=== PATIENT | female | born 2000 | race Two or more races ===

== ENCOUNTER 2020-07-19 10:38 | Emergency (ER) | payer OTHER ==
[2020-07-19 10:53] VITALS: BP 134/83; PULSE 78; TEMP 99.1; BMI 20.9
--- OUTSIDE RECORDS SUMMARY | 2020-07-19 10:56 | XMS ---
:[address] [facility] Care Team Providers Name Role Phone ED STAFF PHYSICIANDOROTHY Unavailable Unavailable [facility], MHAW9 Unavailable Unavailable ED STAFF PHYSICIAN, STAFF Unavailable Unavailable Odette Rodriguez MD Unavailable Unavailable Lesly Rodriguez MD Unavailable Unavailable Lesly Rodriguez MD Unavailable Unavailable Lesly Rodriguez MD Unavailable Unavailable Other Unavailable Unavailable TARI HOLLINGSWORTH Unavailable Unavailable ED STAFF PHYSICIAN Unavailable Unavailable Re-disclosure Warning The records that you are about to access may contain information from federally- assisted alcohol or drug abuse programs. If such information is present, then the following federally mandated warning applies: This information has been disclosed to you from records protected by federal confidentiality rules (42 CFR part 2). The federal rules prohibit you from making any further disclosure of this information unless further disclosure is expressly permitted by the written consent of the person to whom it pertains or as otherwise permitted by 42 CFR part 2. A general authorization for the release of medical or other information is NOT sufficient for this purpose. The Federal rules restrict any use of the information to criminally investigate or prosecute any alcohol or drug abuse patient.The records that you are about to access may contain highly sensitive health information, the redisclosure of which is protected by Article 27-F of the [facility] Public Health law. If you continue you may haveaccess to information: Regarding HIV / AIDS; Provided by facilities licensed or operated by the [facility] Office of Mental Health; or Provided by the [facility] Office for People With Developmental Disabilities. If such information is present, then the following [facility] mandated warning applies: This information has been disclosed to you from confidential records which are protected by state law. State law prohibits you from making any further disclosure of this information without the specific written consent of the person to whom it pertains, or as otherwise permitted by law. Any unauthorized further disclosure in violation of state law may result in a fine or mcfp sentence or both. A general authorization for the release of medical or other information is NOT sufficient authorization for further disclosure. Encounters Encounter Providers Location Date Indications Data Source(s ) Outpatient Attender: [id number] 07/15/2020 [facility] ([facility] 05:19:36 PM Health Care EDT Collaborative) [facility]. [facility] 12:[facility] [employer] [facility]) [facility]TEL) [facility] 05[facility]30[facility] 12:00:00 AM EDT [facility] [employer] [facility]) (TEL) [facility] 05/28/2020 [facility] 12:00:00 AM EDT [facility] [employer] [facility]) [facility] 05/25/2020 [facility] ( [facility] 12:00:00 AM EDT [facility] [employer] [facility]) Outpatient Attender: 05/11/2020 [facility] ([address] 12:32:12 PM EDT Care Col laborative) Patient admitted. Emergency Attender: Odette ICU-EMERG 04/08/2020 01:38:00 ABD PAIN S - New Mama MDAttender: PM EDT - 04/08/2020 [facility] Doctor Other 05:07:00 PM EDT ABD PAIN Patient discharged. Outpatient Attender: DARRICK Borja 04/01/2020 02:14:00 PM [facility] HOLLINGSWORTHAdmitter: DARRICK EDT [facility] TARI HOLLINGSWORTHReferrer: DARRICK HOLLINGSWORTH Outpatient Attender: [id number] [facility] 12/29/2019 05:41:50 AM [facility] ([facility] EDT Health Care Collaborative) Patient admitted. Emergency Attender: DOROTHY ED STAFF H 11/16/2019 02:28:00 PM [facility] PHYSICIANAttender: STAFF ED EST - 11/16/2019 Medical Center STAFF PHYSICIANAdmitter: 05:26:00 PM EST DOROTHY ED STAFF PHYSICIAN Patient discharged. [facility] 08[facility] 12:00:00 AM EDT [facility] - [facility] [place] [employer]) [facility] 07/31/[facility] eCW[facility] 12:00:00 AM EDT Par [facility] - [facility] [place] [employer]) Emergency Attender: CHRISTO Borja 07/12/2019 [facility] ED STAFF 06:46:00 PM EDT Medical C mir PHYSICIANAdmitt - 07/12/2019 er: CHRISTO ED 10:24:00 PM EDT STAFF PHYSICIAN [facility] discharged. [facility] 12:00:00 eCW2 ([facility] [place] AM [facility] [employer] [facility]) [facility] 05/24/2019 12:00:00 eCW2 ([facility] [place] AM EDT [facility] - [facility] [employer] [facility]) Medications Medication Brand Start Product Dose Route Administrative Pharmacy [facility] Indications Reaction Description Data Name Date Form Instructions Instructions Source(s) Azithromyci Azithr 06/10/ active Azithro mycin eCW2 n 500 MG omycin 2020 500mg ([facility] Oral Tablet 500mg 12:00: Alex kaufman Azithromyci 00 AM - Hudso n n 500mg EDT [facility]) Insurance Providers Payer name Policy type Policy ID Covered Covered democrat's Policy P parisa / Coverage democrat ID relationship to Padilla Inf ormation type padilla JACQUELINE [id number] SP [id number] HEALTH NON CAP [place] Medicaid [id number] 1 [id number] Medicaid Medicaid [id number] 1 [id number] Self Pay Self Pay SELF PAY 1 SELF PAY JACQUELINE CARE W [id number] Problems, Conditions, and Diagnoses Code Display Name Description Problem Type Effective Data Sour ce(s) Dates R10.9 Unspecified Abdominal pain Diagnosis 04/08/2020 S - New abdominal pain 01:38:00 PM [facility] Z03.818 Encounter for Encounter for Diagnosis 04/08/2020 S - Ne w observation for observation for 01:38:00 [facility] suspected exposure suspected exposure EDT Hospital to other to other biological agents biological agent, ruled out ruled out ABD PAIN ABD PAIN Diagnosis 04/08/2020 S - New 01:38:00 PM [facility] FOLLOW UP FOR FOLLOW UP FOR Diagnosis 04/08/2020 S - Ne w "SWOLLEN LIVER" "SWOLLEN LIVER" 01:38:00 PM [facility] R10.9 Unspecified UNSPECIFIED Diagnosis 04/01/2020 [facility] abdominal pain ABDOMINAL PAIN 02:14:00 PM Medic al Center EDT F17.210 Nicotine NICOTINE Diagnosis 11/16/2019 [facility] Tay dependence, DEPENDENCE, 02:28:[address] cigarettes, CIGARETTES, EST uncomplicated UNCOMPLICATED J45.909 Unspecified UNSPECIFIED Diagnosis 11/16/2019 [facility] asthma, ASTHMA, 02:28:00 PM Medical Cente r uncomplicated UNCOMPLICATED EST N63.20 Unspecified lump UNSPECIFIED LUMP Diagnosis 11/16/2019 [facility] in the left IN THE LEFT 02:28:[address] breast, BREAST, EST unspecified UNSPECIFIED quadrant QUADRANT N63.0 Unspecified lump UNSPECIFIED LUMP Diagnosis 11/16/2019 [facility] in unspecified IN UNSPECIFIED 02:28:00 PM Medic al Center breast BREAST EST J06.9 Acute upper ACUTE UPPER Diagnosis 07/12/2019 [facility] respiratory RESPIRATORY 06:46:[address] infection, INFECTION, EDT unspecified UNSPECIFIED R68.89 Other general OTHER GENERAL Diagnosis 07/12/2019 [facility] symptoms and signs SYMPTOMS AND SIGNS 06:46:00 PM Medical Center EDT Surgeries/Procedures Procedure Description Date Indications Data Source(s) US Abdomen Complete US 04/08/2020 [facility] Abdomen Complete 04:31:00 PM EDT - System 04/08/2020 04:31:00 PM EDT CHLAMYDIA, CJ 07/31/2019 eCW2 ([facility] 12:00:00 AM EDT [facility]) GONORRHEA, CJ 07/31/2019 eCW2 ([facility] 12:00:00 AM EDT [facility] [employer] [facility]) SPECIMEN HANDLING 07/31/2019 eCW2 ([facility] 12:00:00 AM EDT [facility]) HIV Rapid Test [facility] 07/31/2019 eCW2 ([facility] 12:00:00 AM EDT [facility] [employer] [facility]) HIV Rapid Test [facility] 05/24/2019 eCW2 (P [facility] 12:00:00 AM EDT [facility] - [facility] [employer] [facility]) GONORRHEA, CJ 05/24/2019 eCW2 ([facility] 12:00:00 AM EDT [facility] [employer] [facility]) SPECIMEN HANDLING 05/24/2019 eCW2 ([facility] 12:00:00 AM EDT [facility] [employer] [facility]) Results ID Date Data Source HIV Rapid Test - [facility] 05/25/2020 02:27:41 AM EDT eCW2 ([facility] [employer] ) Name Value Range Interpretation Description Data Sup porting Code Source(s) Document(s ) HIV 1 p18 Ab non Result eCW2 ([facility] [Presence] in reactive Parenthood - Saliva (oral Song fluid) by [employer]) (IB) ID Date Data Source [id number] 04/08/2020 06:08:31 PM EDT [facility] System Name Value Range Interpretation Description Data Sup porting Code Source(s) Document(s ) 45956-0 NEGATIVE Testing Normal (applies COVID-19.. [place] was performed to non-numeric Health Syst em using Melendez ID results) NOW COVID-19, an isothermal nucleic acid amplification technology for the qualitative detection of nucleic acid from the SARS-CoV-2 viral RNA in respiratory specimens. The ID NOW COVID-19 test has been approved by the Food and Drug Administration (FDA) under an Emergency Use Authorization for use by authorized laboratories. Reference Range: NEGATIVE . ID Date Data Source [id number] 04/08/2020 06:08:31 PM EDT [facility] Name Value Range Interpretation Description Data Source(s ) Supporting Code Document(s ) Lipase 20 U/L Normal (applies to Lipase, Serum [place] [facility] [Enzymatic non-numeric Health System activity/vo results) lume] in Serum or Plasma ID Date Data Source [id number] 04/08/2020 06:08:31 PM EDT [facility] Name Value Range Interpretation Description Data Sup porting Code Source(s) Document(s ) Amylase 45 {IU/L} Normal (applies to Amylase, Serum [place] [Enzymatic non-numeric Health System activity/vo results) lume] in Serum or Plasma ID Date Data Source [id number] 04/08/2020 06:08:31 PM EDT [facility] Name Value Range Interpretation Description Data Sup porting Code Source(s) Document(s ) Sodium 135 Normal (applies Sodium, Serum [facility] [Moles/volume] in mmol/L to non-numeric Health Serum or Plasma results) System Potassium 4.1 Normal (applies Potassium, [facility] [Mass/volume] in mmol/L to non-numeric Serum Health Serum or Plasma results) System Chloride 106 Normal (applies Chloride, [facility] [Moles/volume] in mmol/L to non-numeric Serum Health Serum or Plasma results) System Carbon dioxide, 24.5 Normal (applies CO2, Serum [place] total mmol/L to non-numeric Health [Moles/volume] in results) System Serum or Plasma Glucose 76 Normal (applies Glucose, [facility] [Mass/volume] in mg/dL to non-numeric Serum Health Serum or Plasma results) System TotalProtein 6.7 Normal (applies Total Protein [place] mg/dl to non-numeric Health results) System Alkaline 66 Normal (applies Alkaline [facility] phosphatase {IU/L} to non-numeric Phosphatase, Health isoenzymes results) Serum System [Enzymatic activity/volume] in Serum or Plasma by Heat stability Urea nitrogen 9 mg/dl Normal (applies Blood Urea [place] [Mass/volume] in to non-numeric Nitrogen, Health Serum or Plasma results) Serum System Creatinine 0.62 Normal (applies Creatinine, [facility] [Mass/volume] in mg/dl to non-numeric Serum Health Serum or Plasma results) System Bilirubin.total 0.4 Normal (applies Bilirubin, [place] [Mass/volume] in mg/dl to non-numeric Serum Total Health Serum or Plasma results) System DirectBilirubin 0.1 Normal (applies Direct [place] mg/dl to non-numeric Bilirubin Health results) System Aspartate 16 Normal (applies Aspartate [facility] aminotransferase {IU/L} to non-numeric Transaminase, Heal th [Enzymatic results) Serum System activity/volume] in Serum or Plasma by With P-5'-P Albumin 4.3 Normal (applies Albumin, [facility] [Mass/volume] in {gm/dl} to non-numeric Serum Health Serum or Plasma results) System Alanine 14 Normal (applies Alanine [facility] aminotransferase {IU/L} to non-numeric Aminotransfer Heal th [Enzymatic results) ase, Serum System activity/volume] in Serum or Plasma I.Phosphorus 2.8 Normal (applies I. Phosphorus [place] mg/dl to non-numeric Health results) System Calcium 9.1 Normal (applies Calcium, [facility] [Mass/volume] in mg/dl to non-numeric Total Serum Health Serum or Plasma results) System Urate 2.5 Normal (applies Uric Acid, [facility] [Mass/volume] in mg/dl to non-numeric Serum Health Serum or Plasma results) System A/GRatio 1.79 Normal (applies A/G Ratio [facility] to non-numeric Health results) System Anion gap in Serum 4.50 Normal (applies Anion Gap Kushal fartun or Plasma mmol/L to non-numeric Health results) System Glomerular > 90 Normal (applies GFR [facility] filtration to non-numeric Health rate/1.73 sq results) System M.predicted [Volume Rate/Area] in Serum or Plasma by Creatinine-based formula (CKD-EPI) eGFR will provide clinicians with a more accurate indicator of renal function then the serum creatinine. The eGFR is automa tically calculated from an empiric formula (endorsed by the National Kidney Foundat ion) which incorporates age, sex, and race.Clinicians may notice surprisingly low GFR's with serum creatinine valueswithin normal range- particularly in elderly wo men (with low muscle mass).In the hospital setting, the eGFR should add an element of safety in drug dosing, in assessing the risk of IV contrast administration, and in assessing vascular risk.The NKF staging system is as follows:Normal: eGFR >90 with no kidney markersStage 1: eGFR >90 with kidney markers*Stage 2: eGFR 60- 89Stage 3: eGFR 30-59Stage 4: eGFR 15-29Stage 5: eGFR <15 (usually requir ing dialysis)*Markers include: Proteinuria, Hematuria, abnormal imaging-studies, or other blood or urine test abnormalities ID Date Data Source [id number] 04/08/2020 06:08:31 PM EDT [facility] Name Value Range Interpretation Description Data Sup porting Code Source(s) Document(s ) Leukocytes 10.5 Normal (applies WBC Count [facility] [#/volume] in {10^3_uL to non-numeric Health Unspecified } results) System specimen by Automated count Erythrocytes 4.11 Below low normal RBC Count [facility] [#/volume] in {10^6_uL Health Blood by } System Automated count Hematocrit 37.9 % Normal (applies Hematocrit [facility] [Volume to non-numeric Health Fraction] of results) System Blood Erythrocyte mean 92.2 fl Normal (applies MCV [facility] [facility] corpuscular to non-numeric Health volume [Entitic results) System volume] by Automated count Hemoglobin 12.7 Normal (applies Hemoglobin [facility] [Mass/volume] in {gm/dL} to non-numeric Health Blood results) System Erythrocyte mean 33.5 Normal (applies MCHC [place] corpuscular {gm/dL} to non-numeric Health hemoglobin results) System concentration [Mass/volume] by Automated count Erythrocyte mean 30.9 pg Normal (applies MCH [place] corpuscular to non-numeric Health hemoglobin results) System [Entitic mass] by Automated count Platelets 195 Normal (applies Platelet [facility] [#/volume] in {10^3_uL to non-numeric Count Health Plasma by } results) System Automated count Erythrocyte 12.7 % Normal (applies RDW-CV [facility] distribution to non-numeric Health width [Entitic results) System volume] by Automated count Nucleated 0.0 Normal (applies NRBC % [facility] erythrocytes {/100_WB to non-numeric Health [#/volume] in C} results) System Body fluid Platelet mean 9.7 fl Normal (applies MPV [facility] volume [Entitic to non-numeric Health volume] in Blood results) System by Automated count NRBC# 0.00 Normal (applies NRBC # [facility] {10^3_uL to non-numeric Health } results) System ID Date Data Source [id number] 04/08/2020 06:08:31 PM EDT [facility] Name Value Range Interpretation Description Data Sup porting Code Source(s) Document(s ) Appearance of HAZY Normal (applies Urine [facility] Urine to non-numeric Appearance Health results) System Color Yellow Normal (applies Color [facility] to non-numeric Health results) System pH.. 5.0 Normal (applies pH.. [facility] {pH_unit to non-numeric Health s} results) System Specific gravity 1.021 Normal (applies Urine Specific [place] [facility] of Urine to non-numeric [place] [facility] results) System Glucose,UA NEG Normal (applies Glucose, UA [facility] to non-numeric Health results) System Protein NEG Normal (applies Protein [facility] [Mass/volume] in to non-numeric Health Serum or Plasma results) System BilirubinUrine NEG Normal (applies Bilirubin [place] [facility] to non-numeric Urine Health results) System Ketones NEG Normal (applies Ketones UA [facility] [Mass/volume] in to non-numeric Health Urine results) System Urobilinogen < 2.0 Normal (applies Urobilinogen [facility] [facility] [Mass/volume] in to non-numeric UA Health Urine results) System Reference Range: Negative or <=2.0 Nitrate+Nitrite Negative Normal (applies Nitrite [facility] [facility] [Mass/volume] in to non-numeric Health S ystem Unspecified specimen results) Leukocyte esterase Trace Abnormal (applies Leukocyte Est erase [facility] [Units/volume] in to non-numeric Concentration Hea lth System Urine results) RedBloodCells 1 {/HPF} Normal (applies Red Blood Cells [facility] [facility] to non-numeric Health System results) Epithelial cells 12 {/HPF} Normal (applies Epithelial Cells [facility] [Presence] in to non-numeric Health Syst em Unspecified specimen results) by Wet preparation Leukocytes [#/volume] 6 {/HPF} Normal (applies White Blood Cells [facility] in Unspecified to non-numeric Health Sys tem specimen by Automated results) count UrineBlood NEG Normal (applies Urine Blood [facility] to non-numeric Health System results) Bacteria [Presence] FEW Normal (applies Bacteria Cu[place] [facility] in Unspecified to non-numeric Health Sys tem specimen results) Mucus OCC Normal (applies Mucus [facility] to non-numeric Health System results) ID Date Data Source [id number] 04/08/2020 04:31:00 PM EDT [facility] STUDY: ABDOMINAL ULTRASOUNDREASON FOR E XAM: Female, 20 years old. Diffuse abdominal painx 1 month;TECHNIQUE: Tra nsabdominal ultrasound was performed withreal-time and static kendall scaleimagi ng.TECHNICAL QUALITY: Adequate.COMPARISON:None. FINDINGS:Abdominal ultrasound was performed. The liveris ho mogeneouswith the right lobe measuring 14.2 cm. The gallbladder is fluidfilled. Ther e is no gallstones.CBD measures 3.2 mm. Evaluationof the pancreas is unremarkabl e. The abdominal aorta and IVC arenormal incaliber. The right kidney measures 10. 6 cm. The leftkidney measures 10.8 cm. There is no hydronephrosis orrenalcalculi. The spleen is homogeneous measuring 9.3 cm.IMPRESSION: Unremarkable abdominalult rasound.Electronically Signed:Kolton Granado, at 16:49 EDTTel ,Service support , [phone] Name Value Range Interpretation Code Description Data Fabby rce(s) Supporting Document(s ) ID Date Data Source [id number] 04/08/2020 02:38:00 PM EDT [facility] Name Value Range Interpretation Code Description Data [facility] rce(s) Supporting Document(s ) COVID-19.. [facility] This lab was [facility] and reported by [facility]. ID Date Data Source [id number] 11/16/2019 03:26:00 PM EST [facility] 0 Name Value Range Interpretation Description Data Sup porting Code Source(s) Document(s ) UNK CLEAR <content Saint styleCode="Jailyn Buckleys d">Urine Medical Clarity Center </content>ERICK R <content styleCode="Giulia lics"> (CLEAR )</content> Color of Urine YELLOW <content Saint styleCode="Jailyn Tay d">Color, Medical Urine Center </content>YELL OW <content styleCode="Giulia lics"> (YELLOW )</content> Glucose NEGATIVE <content Saint [Mass/volume] styleCode="Jailyn Buckleys in Urine by d">Urine Medical Test strip Glucose Center </content>NEGA TIVE MG/DL<content styleCode="Giulia lics"> (NEGATIVE MG/DL)</conten t> Hemoglobin NEGATIVE <content Saint [Presence] in styleCode="Jailyn Buckleys Urine by Test d">Urine Blood Medical strip </content>TRAC Center E <content styleCode="Giulia lics"> (NEGATIVE )</content> pH of Urine by 4.5-8.0 <content Saint Test strip styleCode="Jailyn Tay d">Urine pH Medical </content>6.0 Center <content styleCode="Giulia lics"> (4.5-8.0 )</content> UNK NEGATIVE <content Saint styleCode="Jailyn Tay d">Urine Medical Bilirubin Center </content>SMAL L <content styleCode="Giulia lics"> (NEGATIVE )</content> Specific 1.015-1.02 Above high <content Saint gravity of 5 normal styleCode="Jailyn Buckleys Urine by Test d">Urine Medical strip Specific Center [place] </content>>= 1.030 H<content styleCode="Giulia lics"> (1.015-1.025 )</content> Ketones NEGATIVE <content Saint [Mass/volume] styleCode="Jailyn Tay in Urine by d">Urine Medical Test strip Ketone Center </content>NEGA TIVE MG/DL<content styleCode="Giulia lics"> (NEGATIVE MG/DL)</conten t> Urobilinogen 0.2-1.0 <content Saint [Units/volume] styleCode="Jailyn Cross in Urine by d">Urine Medical Test strip Urobilinogen Center </content>0.2 MG/DL<content styleCode="Giulia lics"> (0.2-1.0 MG/DL)</conten t> Leukocyte NEGATIVE <content Saint esterase styleCode="Jailyn Buckleys [Presence] in d">Urine Medical Urine by Test Leukocyte Center strip </content>NEGA TIVE <content styleCode="Giulia lics"> (NEGATIVE )</content> Nitrite NEGATIVE <content Saint [Presence] in styleCode="Jailyn Cross Urine by Test d">Urine Medical strip Nitrite Center </content>NEGA TIVE <content styleCode="Giulia lics"> (NEGATIVE )</content> Protein NEGATIVE <content Saint [Mass/volume] styleCode="Jailyn Buckleys in Urine by d">Urine Medical Test strip Protein Center </content>NEGA TIVE MG/DL<content styleCode="Giulia lics"> (NEGATIVE MG/DL)</conten t> UNK 0-3 <content Saint styleCode="Jailyn Tay d">Urine White Medical Blood Cell Center </content>0-3 HPF<content styleCode="Giulia lics"> (0-3 HPF)</content> UNK 0-3 <content Saint styleCode="Jailyn Tay d">Urine Red Medical Blood Cell Center </content>0-3 HPF<content styleCode="Giulia lics"> (0-3 HPF)</content> Procedure Social History Code Duration Value Status Description Data Source(s ) Smoking 11/16/2019 03:23:00 Daily Smoker completed Daily Smoker S [facility] EST Center Smoking 11/16/2019 03:02:00 Daily Smoker completed Daily Smoker S [facility] EST Center Smoking 11/16/2019 02:28:00 Daily Smoker completed Daily Smoker S [facility] EST Center Smoking 07/12/2019 07:51:00 Daily Smoker completed Daily Smoker S [facility] EDT Center Smoking 07/12/2019 07:32:00 Daily Smoker completed Daily Smoker S [facility] EDT Center Vital Signs ID Date Data Source UNK Name Value Range Interpretation Code Description Data Source(s) Diastolic blood 77 mm[Hg] 77 mm[Hg] eCW2 (Cyn nned pressure [facility] [employer]) Systolic blood 114 mm[Hg] 114 mm[Hg] eCW2 (Plan [facility] pressure [facility] [employer]) Body mass index 21.30 kg/m2 21.30 kg/m2 eCW2 (P lanned (BMI) [Ratio] [facility] [employer]) Body weight 132 [lb_av] 132 [lb_av] eCW2 (Plann ed [facility] [employer]) Body height 66 [in_i] 66 [in_i] eCW2 ([facility] [employer]) Diastolic blood 69 mm[Hg] 69 mm[Hg] eCW2 (Cyn nned pressure [facility] [employer]) Systolic blood 114 mm[Hg] 114 mm[Hg] eCW2 (Plan [facility] pressure [facility] [employer]) Body mass index 22.59 kg/m2 22.59 kg/m2 eCW2 (P lanned (BMI) [Ratio] [facility] [employer]) Body weight 140 [lb_av] 140 [lb_av] eCW2 (Plann ed [facility] [employer]) Body height 66 [in_i] 66 [in_i] eCW2 ([facility] [employer]) Body temperature 36.6 Lena 0 - 99.9 Normal (applies to 36.6 Lena [facility] results) Body temperature 98 [degF] 0 - 200 Normal (applies to 98 [degF] [facility]) Diastolic blood 79 mm[Hg] 0 - 999 Normal (applies to 79 mm[Hg] [facility]) Systolic blood 129 mm[Hg] 0 - 999 Normal (applies to 129 mm[Hg] [facility]) Oxygen saturation 99 % 0 - 999 Normal (applies to 99 % [facility] by Pulse oximetry results) Respiratory rate 17 0 - 999 Normal (applies to 17 [facility]) Heart rate 70 0 - 999 Normal (applies to 70 [facility]) Body surface area 1.7 m2 1.7 m2 [facility] ore Derived from Health Syste m formula Body mass index 23.4 kg/m2 23.4 [facility]2 [facility] [Ratio] [facility] em Body weight 65.77 kg 65.77 kg [facility] Body height 167.64 cm 167.64 cm [facility] Body weight 63.010395 63.374857 kg [facility] Measured kg [facility] Body temperature 37.581101 37.109283 [facility] Respiratory rate 18 /min 18 /min [facility] Oxygen saturation 100 % 100 % [facility] Arterial blood [facility] by Pulse oximetry Heart rate 79 /min 79 /min [facility] Body height 167.956678 167.802340 cm [facility] cm [facility] Diastolic blood 70 mm[Hg] 70 mm[Hg] [facility] pressure [facility] Center Systolic blood 147 mm[Hg] 147 mm[Hg] [facility] pressure [facility] Center Body mass index 22.5 kg/m2 22.5 kg/m2 [facility] ephs (BMI) [Ratio] [facility] [address] [facility] Diastolic blood 61 mm[Hg] 61 mm[Hg] eCW2 ([facility]yn [facility] [employer]) Systolic blood 110 mm[Hg] 110 mm[Hg] eCW2 ([facility] [employer]) Body mass index 22.90 kg/m2 22.90 kg/m2 eCW2 (P lanned (BMI) [Ratio] [facility] [employer]) Body weight 141.9 141.9 [lb_av] eCW2 ([facility] Measured [lb_av] [facility] [employer]) Body height 66 [in_us] 66 [in_us] eCW2 ([facility] [employer]) Body temperature 37.445160 37.960509 [facility] Respiratory rate 18 /min 18 /min [facility] Oxygen saturation 99 % 99 % [facility] Arterial [facility] by Pulse oximetry Heart rate 98 /min 98 /min [facility] Diastolic blood 61 mm[Hg] 61 mm[Hg] [facility] pressure [facility] Systolic blood 130 mm[Hg] 130 mm[Hg] [facility] Diastolic blood 62 mm[Hg] 62 mm[Hg] eCW2 (Cyn [facility]ned [facility] [employer]) Systolic blood 95 mm[Hg] 95 mm[Hg] eCW2 ([facility] [employer]) Body mass index 22.51 kg/m2 22.51 kg/m2 eCW2 (P lanned (BMI) [Ratio] [facility] [employer]) Body weight 139.5 139.5 [lb_av] eCW2 ([facility] Measured [lb_av] [facility] [employer]) Body height 66 [in_us] 66 [in_us] eCW2 ([facility] [employer]) Diastolic blood 62 mm[Hg] 62 mm[Hg] eCW2 (Cyn [facility] [employer]) Systolic blood 95 mm[Hg] 95 mm[Hg] eCW2 ([facility] [employer]) Body mass index 22.51 kg/m2 22.51 kg/m2 eCW2 (P lanned (BMI) [Ratio] [facility] [employer]) Body weight 139.5 139.5 [lb_av] eCW2 ([facility] Measured [lb_av] [facility] [employer]) Body height 66 [in_us] 66 [in_us] eCW2 ([facility] [employer]) Patient Treatment Plan of Care Planned Activity Planned Date Details Description Data Source (s) Azithromycin 500 MG Oral 06/10/2020 12:00:00 eCW2 ([facility] Tablet AM [facility])
[2020-07-19] MEDS ORDERED: KETOROLAC TROMETHAMINE 60 MG/2 ML VIAL IM ONE (11:17)
[2020-07-19] MEDS ORDERED: CYCLOBENZAPRINE HCL 10 MG TABLET (FP) PO ONE (11:17)
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
[2020-07-19] MEDS ORDERED: KETOROLAC TROMETHAMINE 60 MG/2 ML VIAL ONE (12:06)
[2020-07-19] MEDS ORDERED: CYCLOBENZAPRINE HCL 10 MG TABLET (FP) ONE (12:06)
[2020-07-19] MEDS ORDERED: IBUPROFEN 600 MG TABLET (FP) PO ONE ×2 (12:12→12:13)
== END 2020-07-19 12:41 | disposition home or self-care (01) ==
LOC: JERFT 10:38 → JER 10:38 → JERFT 12:41
PROC: 3E0233Z Introduction of Anti-inflammatory into Muscle, Percutaneous Approach (ICD-10-PCS; principal; 2020-07-19)
DX: M25.512 Pain in left shoulder (principal)
CPT/HCPCS: 73030-TC-LT-FY; 84703; 99284-25

== ENCOUNTER 2021-02-08 15:20 | Emergency (ER) | payer OTHER ==
[2021-02-08 15:33] VITALS: BP 133/81; PULSE 83; TEMP 97.3; BMI 23.3
[2021-02-08] MEDS ORDERED: SODIUM CHLORIDE 1,000 ML IV STA (15:56)
[2021-02-08] MEDS ORDERED: ACETAMINOPHEN 1000 MG/100 ML VIAL (NON FORMULARY) IVPB ONE (15:56)
[2021-02-08] MEDS ORDERED: ACETAMINOPHEN INJECTION 100 ML IVPB ONE (16:15)
[2021-02-08 16:45] LABS: BASO % 0.4 % (0-2.0); EOS % 0.5 % (0-4.5); HEMATOCRIT 36.8 % (32.4-45.2); HEMOGLOBIN 12.7 GM/dL (10.7-15.3); LYMPH % 9.1 % (8-40); MCH 31.8 pg (25.7-33.7); MCHC 34.5 g/dl (32.0-36.0); MEAN CELL VOLUME 92.2 fl (80-96); MEAN PLT VOLUME 7.9 fl (7.5-11.1); MONO % 6.4 % (3.8-10.2); NEUT % 83.6 % (42.8-82.8); PLATELET COUNT 202 K/MM3 (134-434); RBC 3.99 M/mm3 (3.60-5.2); RDW 12.9 % (11.6-15.6); WHITE BLOOD COUNT 14.1 K/mm3 (4.0-10.0)
[2021-02-08 16:56] LABS: INR 1.09 (0.83-1.09); PROTHROMBIN TIME (PATIENT) 13.1 SEC (9.7-13.0)
[2021-02-08 17:01] LABS: CALCIUM 8.5 mg/dL (8.5-10.1)
[2021-02-08 17:02] LABS: ALBUMIN 3.8 g/dl (3.4-5.0)
[2021-02-08 17:05] LABS: CREATININE 0.8 mg/dL (0.55-1.3)
[2021-02-08 17:06] LABS: BILIRUBIN,TOTAL 0.4 mg/dL (0.2-1); TOT PROT 7.4 g/dl (6.4-8.2)
[2021-02-08] MEDS ORDERED: DEXAMETHASONE LIQUID 0.5 MG/5 ML PO ONE (18:39)
[2021-02-08] MEDS ORDERED: DEXAMETHASONE SOD PHOSPHATE 10 MG/1 ML VIAL ONE (18:45)
== END 2021-02-08 18:55 | disposition home or self-care (01) ==
LOC: JER 15:20
PROC: 3E0333Z Introduction of Anti-inflammatory into Peripheral Vein, Percutaneous Approach (ICD-10-PCS; principal; 2021-02-08)
PROC: 3E0337Z Introduction of Electrolytic and Water Balance Substance into Peripheral Vein, Percutaneous Approach (ICD-10-PCS; 2021-02-08)
DX: R59.9 Enlarged lymph nodes, unspecified (principal)
CPT/HCPCS: 36415; 70491-TC; 80053; 84703; 85025; 85610; 87880; 99285-25; C9803; J0131; Q9967; U0003; U0005

== ENCOUNTER 2022-06-30 16:03 | Inpatient (IN) | payer OTHER ==
[2022-06-30] MEDS ORDERED: CEFAZOLIN SODIUM 2 GM VIAL ONE (17:56)
[2022-06-30] MEDS ORDERED: CEFAZOLIN SODIUM 2 GM in DEXTROSE 5%-WATER 100 ML IVPB ONE (18:00)
[2022-06-30] MEDS ORDERED: DEXTROSE 5%-LACTATED RINGERS 1,000 ML IV SCH ×2 (18:00→18:10)
[2022-06-30 18:49] LABS: BASO % 0.1 % (0-2.0); EOS % 0.4 % (0-4.5); HEMATOCRIT 25.5 % (32.4-45.2); HEMOGLOBIN 9.1 GM/dL (10.7-15.3); LYMPH % 7.2 % (8-40); MCHC 35.6 g/dl (32.0-36.0); MEAN CELL VOLUME 92.6 fl (80-96); MEAN PLT VOLUME 7.1 fl (7.5-11.1); MONO % 9.1 % (3.8-10.2); NEUT % 83.2 % (42.8-82.8); PLATELET COUNT 180 10^3/uL (134-434); RBC 2.75 M/mm3 (3.60-5.2); WHITE BLOOD COUNT 13.8 K/mm3 (4.0-10.0)
[2022-06-30 18:52] LABS: EPI CELLS >36 /uL (0-25.1); HYALINE CASTS 1 /uL (0-3.1); PH,URINE 6.5 (5.0-8.0); URINE APPEARANCE CLEAR; URINE BACTERIA 314 /uL (0-1359); URINE BILIRUBIN NEGATIVE (NEGATIVE); URINE COLOR YELLOW; URINE GLUCOSE (UA) NEGATIVE (NEGATIVE); URINE KETONE TRACE (NEGATIVE); URINE LEUK ESTERASE 1+ (NEGATIVE); URINE NITRITE NEGATIVE (NEGATIVE); URINE PROTEIN NEGATIVE (NEGATIVE); URINE RBC 45 /uL (0-23.9); URINE WBC 65 /uL (0-25.8)
[2022-06-30 19:06] LABS: METHADONE, UR NEGATIVE (NEGATIVE)
[2022-06-30 19:07] LABS: COCAINE, UR NEGATIVE (NEGATIVE); PHENCYCLIDINE,URINE NEGATIVE (NEGATIVE)
[2022-06-30 19:22] LABS: OPIATES, URI NEGATIVE (NEGATIVE); URINE AMPHETAMINES NEGATIVE (NEGATIVE); URINE BARBITURATES NEGATIVE (NEGATIVE); URINE BENZODIAZEPINES NEGATIVE (NEGATIVE)
[2022-06-30 20:19] VITALS: BMI 26.2
[2022-06-30 20:35] LABS: BASO % 0.3 % (0-2.0); EOS % 0.4 % (0-4.5); HEMATOCRIT 25.5 % (32.4-45.2); HEMOGLOBIN 9.1 GM/dL (10.7-15.3); LYMPH % 8.3 % (8-40); MCH 33.1 pg (25.7-33.7); MCHC 35.6 g/dl (32.0-36.0); MEAN CELL VOLUME 92.8 fl (80-96); MEAN PLT VOLUME 7.3 fl (7.5-11.1); MONO % 9.7 % (3.8-10.2); NEUT % 81.3 % (42.8-82.8); PLATELET COUNT 188 10^3/uL (134-434); RBC 2.75 M/mm3 (3.60-5.2); WHITE BLOOD COUNT 13.9 K/mm3 (4.0-10.0)
[2022-06-30 20:44] LABS: INR 1.04 (0.83-1.09)
[2022-06-30 20:46] LABS: ACTIVATED PTT 26.5 SECONDS (25.2-36.5)
[2022-06-30 20:57] LABS: CALCIUM 8.5 mg/dL (8.5-10.1)
[2022-06-30 20:58] LABS: ALBUMIN 2.8 g/dl (3.4-5.0); BLOOD UREA NITROGEN 4.9 mg/dL (7-18)
[2022-06-30 21:01] LABS: CREATININE 0.4 mg/dL (0.55-1.3)
[2022-06-30 21:03] LABS: BILIRUBIN,TOTAL 0.2 mg/dL (0.2-1); TOT PROT 6.2 g/dl (6.4-8.2)
[2022-06-30] MEDS ORDERED: POTASSIUM CHLORIDE 20 MEQ PREMIX IVPB 100 ML IVPB ONE (21:26)
[2022-06-30 21:52] LABS: HIV INTERPRETATION NEGATIVE (NEGATIVE)
[2022-06-30] MEDS: KCL 10 MEQ IVPB 10 MEQ/100 ML INFUS.BAG IVPB SCH ×2 (21:57→23:51)
[2022-06-30] MEDS: CEFAZOLIN 1 GM in DEXTROSE 5%-WATER - 50 ML IVPB SCH (23:50)
[2022-07-01] MEDS: CEFAZOLIN 1 GM in DEXTROSE 5%-WATER - 50 ML IVPB SCH ×2 (06:01→16:34)
[2022-07-01] MEDS: FERROUS SO4 325 MG TABLET (FP) PO SCH ×2 (09:33→16:33)
[2022-07-01] MEDS: PRENATAL VITAMINS W/ FOLIC ACID TABLET (FP) PO SCH (09:37)
[2022-07-01] MEDS: KCL 10 MEQ IVPB 10 MEQ/100 ML INFUS.BAG IVPB SCH ×2 (11:42→14:11)
[2022-07-01] MEDS ORDERED: CEFAZOLIN 1 GM in DEXTROSE 5%-WATER - 50 ML IVPB SCH (17:30)
[2022-07-01] MEDS ORDERED: ONDANSETRON 4 MG/2 ML VIAL IVPUSH PRN (18:31)
[2022-07-01 18:44] VITALS: RESP 18
[2022-07-01] MEDS: ACETAMINOPHEN 500 MG TABLET (FP) PO PRN (21:43)
[2022-07-01] MEDS ORDERED: CEFAZOLIN 1 GM in DEXTROSE 5%-WATER - 50 ML IVPB ONE (22:30)
[2022-07-02 08:48] LABS: BASO % 0.2 % (0-2.0); EOS % 0.9 % (0-4.5); HEMOGLOBIN 9.9 GM/dL (10.7-15.3); LYMPH % 13.2 % (8-40); MCH 32.8 pg (25.7-33.7); MCHC 35.2 g/dl (32.0-36.0); MEAN CELL VOLUME 93.3 fl (80-96); MEAN PLT VOLUME 6.8 fl (7.5-11.1); MONO % 10.3 % (3.8-10.2); NEUT % 75.4 % (42.8-82.8); PLATELET COUNT 213 10^3/uL (134-434); WHITE BLOOD COUNT 9.1 K/mm3 (4.0-10.0)
[2022-07-02] MEDS: FERROUS SO4 325 MG TABLET (FP) PO SCH (08:48)
[2022-07-02] MEDS: ACETAMINOPHEN 500 MG TABLET (FP) PO PRN (08:49)
[2022-07-02 09:07] LABS: BLOOD UREA NITROGEN 3.7 mg/dL (7-18)
[2022-07-02 09:10] LABS: CREATININE 0.4 mg/dL (0.55-1.3)
[2022-07-02] MEDS: PRENATAL VITAMINS W/ FOLIC ACID TABLET (FP) PO SCH (11:28)
[2022-07-02 11:37] VITALS: BP 124/68; PULSE 80; TEMP 98.2
== END 2022-07-02 11:54 | disposition home or self-care (01) | DRG 566 ==
LOC: JDEL 16:03 → JLDR 18:55 → J3W 20:58
PROVIDERS: ADMIT Obstetrics & Gynecology; ATTEND Obstetrics & Gynecology
DX: O23.02 Infections of kidney in pregnancy, second trimester (principal); N10 Acute pyelonephritis; O99.012 Anemia complicating pregnancy, second trimester; D50.9 Iron deficiency anemia, unspecified; E87.6 Hypokalemia; N20.0 Calculus of kidney; Z3A.22 22 weeks gestation of pregnancy
CPT/HCPCS: 36415; 59025; 76775-TC; 80048; 80053; 80307; 81003; 85025; 85610; 85730; 86780; 86850; 86900; 86901; 87081; 87086; 87186; 87389; C9803-CS; U0003; U0005

== ENCOUNTER 2022-10-13 08:10 | Inpatient (IN) | payer OTHER ==
[2022-10-13] MEDS: ELECTROLYTE-148 SOLN 1,000 ML IV SCH (09:00)
[2022-10-13 09:09] VITALS: BMI 30.5
[2022-10-13] MEDS ORDERED: DINOPROSTONE 10 MG VAGINAL SUPPOSITORY VG ONE (09:30)
[2022-10-13] MEDS ORDERED: PROMETHAZINE HCL 25 MG/1 ML VIAL IVPUSH ONE (09:43)
[2022-10-13] MEDS ORDERED: BUTORPHANOL TARTRATE 1 MG/ML VIAL IVPUSH PRN (09:43)
[2022-10-13 11:07] LABS: BASO % 0.2 % (0-2.0); EOS % 0.6 % (0-4.5); HEMATOCRIT 34.1 % (32.4-45.2); HEMOGLOBIN 11.5 GM/dL (10.7-15.3); LYMPH % 14.7 % (8-40); MCH 30.6 pg (25.7-33.7); MCHC 33.7 g/dl (32.0-36.0); MEAN CELL VOLUME 90.7 fl (80-96); MEAN PLT VOLUME 8.2 fl (7.5-11.1); MONO % 6.3 % (3.8-10.2); NEUT % 78.2 % (42.8-82.8); PLATELET COUNT 308 10^3/uL (134-434); RBC 3.76 M/mm3 (3.60-5.2); RDW 12.6 % (11.6-15.6); WHITE BLOOD COUNT 12.5 K/mm3 (4.0-10.0)
[2022-10-13 11:15] LABS: INR 0.89 (0.83-1.09); PROTHROMBIN TIME (PATIENT) 10.2 SEC (9.7-13.0)
[2022-10-13 11:38] LABS: CALCIUM 9.1 mg/dL (8.5-10.1)
[2022-10-13 11:39] LABS: ALBUMIN 2.6 g/dl (3.4-5.0); BLOOD UREA NITROGEN 10.1 mg/dL (7-18)
[2022-10-13 11:42] LABS: CREATININE 0.5 mg/dL (0.55-1.3)
[2022-10-13 11:43] LABS: BILIRUBIN,TOTAL 0.2 mg/dL (0.2-1); TOT PROT 6.3 g/dl (6.4-8.2)
[2022-10-13 12:32] LABS: HIV INTERPRETATION NEGATIVE (NEGATIVE)
[2022-10-13] MEDS ORDERED: BUTORPHANOL TARTRATE 2 MG/ML VIAL ONE (18:28)
[2022-10-13] MEDS ORDERED: PROMETHAZINE HCL 25 MG/1 ML VIAL ONE (18:28)
[2022-10-13] MEDS ORDERED: SODIUM PHOSPHATE/NA BIPHOS 133 ML ENEMA RC ONE (23:14)
[2022-10-14] MEDS ORDERED: AMPICILLIN SODIUM 2 GM VIAL ONE (00:51)
[2022-10-14] MEDS ORDERED: AMPICILLIN - 2 GM in SODIUM CHLORIDE 100 ML IVPB ONE (01:00)
[2022-10-14] MEDS ORDERED: OXYTOCIN 30 UNITS in 0.9% NS 30 UNIT/500 ML INFUS.BAG IVPB SCH (01:30)
[2022-10-14] MEDS ORDERED: OXYTOCIN 30 UNITS in 0.9% NS 30 UNIT/500 ML INFUS.BAG IVPB ONE (01:50)
[2022-10-14] MEDS ORDERED: AMPICILLIN SODIUM 1 GM VIAL ONE ×3 (04:39→13:04)
[2022-10-14] MEDS: AMPICILLIN - 1 GM in SODIUM CHLORIDE 100 ML IVPB SCH ×3 (05:27→13:05)
[2022-10-14] MEDS ORDERED: NIFEdipine E.R. 30 MG TABLET PO ONE (07:52)
[2022-10-14] MEDS: NIFEdipine E.R. 30 MG TABLET PO SCH ×2 (08:00→13:18)
[2022-10-14] MEDS ORDERED: FENTANYL/BUPIVACAINE/NS/PF - PCEA - 50 ML DISP.SYRIN EP ONE ×2 (08:04→13:24)
[2022-10-14] MEDS ORDERED: NALOXONE HCL 0.4 MG/ML VIAL IVPUSH PRN (08:16)
[2022-10-14] MEDS ORDERED: FENTANYL CITRATE/PF 50 MCG/ML VIAL ONE (08:17)
[2022-10-14] MEDS ORDERED: BUPIVACAINE HCL/PF 0.25% (2.5MG/ML) 10 ML VIAL ONE (08:17)
[2022-10-14] MEDS: FENTANYL/BUPIVACAINE/NS/PF - PCEA - 50 ML DISP.SYRIN EP SCH ×2 (08:30→13:25)
[2022-10-14] MEDS: ELECTROLYTE-148 SOLN 1,000 ML IV SCH (09:00)
[2022-10-14] MEDS ORDERED: OXYTOCIN 20 UNITS in 0.9% NS 20 UNIT/1,000 ML INFUS.BAG IV ONE (14:04)
[2022-10-14] MEDS ORDERED: LABETALOL HCL 200 MG TABLET (FP) PO ONE (14:45)
[2022-10-14] MEDS ORDERED: ACETAMINOPHEN INJECTION 100 ML IVPB ONE (14:47)
[2022-10-14] MEDS ORDERED: LABETALOL HCL 200 MG TABLET (FP) ONE (14:47)
[2022-10-14] MEDS ORDERED: ACETAMINOPHEN 1000 MG/100 ML BAG IVPB ONE (14:55)
[2022-10-14] MEDS ORDERED: BENZOCAINE 20% 57 GM BOTTLE TP PRN (15:04)
[2022-10-14] MEDS ORDERED: WITCH HAZEL 50% (TUCKS) 40 PAD/JAR PAD TP PRN (15:04)
[2022-10-14] MEDS ORDERED: BISACODYL 10 MG SUPP.RECT RC PRN (15:04)
[2022-10-14] MEDS ORDERED: METHYLERGONOVINE MALEATE 0.2 MG/1 ML AMP IM PRN (15:04)
[2022-10-14] MEDS ORDERED: ACETAMINOPHEN 325 MG TABLET (FP) PO PRN (15:04)
[2022-10-14] MEDS ORDERED: oxyCODONE HCL 5 MG TABLET PO PRN (15:04)
[2022-10-14] MEDS ORDERED: BENZOCAINE 28 GM HEMORRHOIDAL OINTMENT TP PRN (15:04)
[2022-10-14] MEDS ORDERED: OXYTOCIN 20 UNITS in 0.9% NS 20 UNIT/1,000 ML INFUS.BAG IV SCH (15:15)
[2022-10-14 17:09] LABS: CORD BASE EXCESS -5.3 mmol/L (0-2); CORD PCO2 55.4 mmHg (30-78); CORD pH 7.236 (7.14-7.44)
[2022-10-14 17:10] LABS: CORD HCO3 23.2 mmHg (20-29); CORD PCO2 49.8 mmHg (30-78); CORD pH 7.287 (7.14-7.44)
[2022-10-14] MEDS: FERROUS SO4 325 MG TABLET (FP) PO SCH (18:09)
[2022-10-15 07:40] LABS: BASO % 0.2 % (0-2.0); EOS % 0.7 % (0-4.5); HEMATOCRIT 29.1 % (32.4-45.2); HEMOGLOBIN 9.9 GM/dL (10.7-15.3); LYMPH % 17.6 % (8-40); MCH 31.1 pg (25.7-33.7); MCHC 34.1 g/dl (32.0-36.0); MEAN CELL VOLUME 91.3 fl (80-96); MEAN PLT VOLUME 7.8 fl (7.5-11.1); MONO % 7.1 % (3.8-10.2); NEUT % 74.4 % (42.8-82.8); PLATELET COUNT 212 10^3/uL (134-434); RBC 3.19 M/mm3 (3.60-5.2); RDW 12.9 % (11.6-15.6); WHITE BLOOD COUNT 14.1 K/mm3 (4.0-10.0)
[2022-10-15] MEDS: NIFEdipine E.R. 30 MG TABLET PO SCH (09:10)
[2022-10-15] MEDS: PRENATAL VITAMINS W/ FOLIC ACID TABLET (FP) PO SCH (09:10)
[2022-10-15] MEDS: FERROUS SO4 325 MG TABLET (FP) PO SCH ×2 (09:10→17:23)
[2022-10-15] MEDS: IBUPROFEN 600 MG TABLET (FP) PO PRN ×2 (15:41→21:21)
[2022-10-15] MEDS ORDERED: SENNOSIDES/DOCUSATE COMBO (SENNA PLUS) TABLET (UD) PO PRN (22:00)
[2022-10-16] MEDS: IBUPROFEN 600 MG TABLET (FP) PO PRN ×2 (05:17→09:44)
[2022-10-16] MEDS: FERROUS SO4 325 MG TABLET (FP) PO SCH (09:43)
[2022-10-16] MEDS: NIFEdipine E.R. 30 MG TABLET PO SCH (09:44)
[2022-10-16] MEDS: PRENATAL VITAMINS W/ FOLIC ACID TABLET (FP) PO SCH (09:44)
[2022-10-16 10:32] VITALS: BP 154/82; PULSE 79; RESP 16; TEMP 97.7
== END 2022-10-16 11:45 | disposition home or self-care (01) | DRG 560 ==
LOC: JLDR 08:10 → J3W 10-14 17:10
PROVIDERS: ADMIT Obstetrics & Gynecology; ATTEND Obstetrics & Gynecology
PROC: 3E0P7VZ Introduction of Hormone into Female Reproductive, Via Natural or Artificial Opening (ICD-10-PCS; 2022-10-13)
PROC: 10E0XZZ Delivery of Products of Conception, External Approach (ICD-10-PCS; principal; 2022-10-14)
PROC: 0U7C7ZZ Dilation of Cervix, Via Natural or Artificial Opening (ICD-10-PCS; 2022-10-14)
PROC: 3E033VJ Introduction of Other Hormone into Peripheral Vein, Percutaneous Approach (ICD-10-PCS; 2022-10-14)
PROC: 0W8NXZZ Division of Female Perineum, External Approach (ICD-10-PCS; 2022-10-14)
PROC: 0HQ9XZZ Repair Perineum Skin, External Approach (ICD-10-PCS; 2022-10-14)
DX: O14.04 Mild to moderate pre-eclampsia, complicating childbirth (principal); O70.0 First degree perineal laceration during delivery; O99.824 Streptococcus B carrier state complicating childbirth; O99.214 Obesity complicating childbirth; E66.9 Obesity, unspecified; Z3A.37 37 weeks gestation of pregnancy; Z37.0 Single live birth; Z87.440 Personal history of urinary (tract) infections; Z62.810 Personal history of physical and sexual abuse in childhood
CPT/HCPCS: 36415; 36600; 59409; 80053; 82803; 85025; 85610; 85730; 86780; 86850; 86900; 86901; 87389; C9803-CS; U0003; U0005

== ENCOUNTER 2023-04-22 14:12 | Emergency (ER) | payer OTHER ==
[2023-04-22 14:28] VITALS: BP 121/58; PULSE 90; RESP 18; TEMP 98; BMI 25.8
== END 2023-04-22 15:08 | disposition home or self-care (01) ==
LOC: JERFT 14:12
DX: O9A.219 Injury, poisoning and certain other consequences of external causes complicating pregnancy, unspecified trimester (principal); S30.861A Insect bite (nonvenomous) of abdominal wall, initial encounter; Z3A.00 Weeks of gestation of pregnancy not specified; W57.XXXA Bitten or stung by nonvenomous insect and other nonvenomous arthropods, initial encounter
CPT/HCPCS: 99283-25

== ENCOUNTER 2023-08-18 18:21 | Emergency (ER) | payer OTHER ==
[2023-08-18 18:41] VITALS: BP 120/65; PULSE 88; RESP 18; TEMP 98.8; BMI 28.2
[2023-08-18] MEDS ORDERED: ACETAMINOPHEN 500 MG TABLET (FP) PO ONE (20:51)
[2023-08-18] MEDS ORDERED: LIDOCAINE 4% PATCH TP ONE (20:51)
[2023-08-18] MEDS ORDERED: ACETAMINOPHEN 500 MG TABLET (FP) ONE (20:53)
[2023-08-18] MEDS ORDERED: LIDOCAINE PATCH REMOVAL MC ONE (22:00)
== END 2023-08-18 21:24 | disposition home or self-care (01) ==
LOC: JERFT 18:21 → JER 18:21 → JERFT 21:24
DX: O9A.213 Injury, poisoning and certain other consequences of external causes complicating pregnancy, third trimester (principal); M54.2 Cervicalgia; Z3A.32 32 weeks gestation of pregnancy; V43.62XA Car passenger injured in collision with other type car in traffic accident, initial encounter; Y92.481 Parking lot as the place of occurrence of the external cause
CPT/HCPCS: 99283-25

== ENCOUNTER 2023-09-26 11:29 | Inpatient (IN) | payer OTHER ==
[2023-09-26] MEDS ORDERED: BUTORPHANOL TARTRATE 1 MG/ML VIAL IVPB ONE (12:01)
[2023-09-26] MEDS ORDERED: PROMETHAZINE HCL 25 MG/1 ML VIAL IVPB ONE (12:07)
[2023-09-26] MEDS ORDERED: PENICILLIN G POTASSIUM 5,000,000 UNIT/250 ML BAG IVPB ONE (12:14)
[2023-09-26] MEDS ORDERED: PENICILLIN G POTASSIUM 5,000,000 PRE-DOCK IN NS 250 ML IVPB ONE (12:15)
[2023-09-26] MEDS ORDERED: PENICILLIN G POTASSIUM 5,000,000 (5Mm) UNIT VIAL IVPB ONE (12:15)
[2023-09-26] MEDS ORDERED: PENICILLIN G POTASSIUM 5,000,000 (5Mm) UNIT VIAL IVPB SCH (12:15)
[2023-09-26] MEDS ORDERED: ELECTROLYTE-148 SOLN 1,000 ML IV SCH (12:15)
[2023-09-26] MEDS ORDERED: FENTANYL/BUPIVACAINE/NS/PF - PCEA - 50 ML DISP.SYRIN EP ONE (12:26)
[2023-09-26 12:58] LABS: BASO % 0.3 % (0-2.0); EOS % 0.4 % (0-4.5); HEMATOCRIT 33.3 % (32.4-45.2); HEMOGLOBIN 11.4 GM/dL (10.7-15.3); LYMPH % 13.1 % (8-40); MCH 30.5 pg (25.7-33.7); MCHC 34.1 g/dl (32.0-36.0); MEAN CELL VOLUME 89.4 fl (80-96); MEAN PLT VOLUME 7.8 fl (7.5-11.1); MONO % 4.3 % (3.8-10.2); NEUT % 81.9 % (42.8-82.8); PLATELET COUNT 279 10^3/uL (134-434); RBC 3.73 M/mm3 (3.60-5.2); RDW 12.9 % (11.6-15.6); WHITE BLOOD COUNT 12.7 K/mm3 (4.0-10.0)
[2023-09-26 13:03] LABS: INR 0.96 (0.83-1.09); PROTHROMBIN TIME (PATIENT) 11.1 SEC (9.7-13.0)
[2023-09-26 13:05] LABS: ACTIVATED PTT 26.6 SECONDS (25.2-36.5)
[2023-09-26 13:16] LABS: POTASSIUM 3.9 mmol/L (3.5-5.1)
[2023-09-26 13:17] LABS: CALCIUM 8.7 mg/dL (8.5-10.1)
[2023-09-26 13:18] LABS: BLOOD UREA NITROGEN 7.8 mg/dL (7-18)
[2023-09-26 13:21] LABS: CREATININE 0.6 mg/dL (0.55-1.3)
[2023-09-26] MEDS ORDERED: OXYTOCIN 20 UNITS in 0.9% NS 20 UNIT/1,000 ML INFUS.BAG IV ONE ×2 (13:41→15:59)
[2023-09-26] MEDS ORDERED: WITCH HAZEL 50% (TUCKS) 40 PAD/JAR PAD TP PRN (13:56)
[2023-09-26] MEDS ORDERED: ACETAMINOPHEN 325 MG TABLET (FP) PO PRN (13:56)
[2023-09-26] MEDS ORDERED: METHYLERGONOVINE MALEATE 0.2 MG/1 ML AMP IM PRN (13:56)
[2023-09-26] MEDS ORDERED: BENZOCAINE 28 GM HEMORRHOIDAL OINTMENT TP PRN (13:56)
[2023-09-26] MEDS ORDERED: BENZOCAINE 20% 57 GM BOTTLE TP PRN (13:56)
[2023-09-26] MEDS ORDERED: BISACODYL 10 MG SUPP.RECT RC PRN (13:56)
[2023-09-26] MEDS ORDERED: OXYTOCIN 20 UNITS in 0.9% NS 20 UNIT/1,000 ML INFUS.BAG IV SCH (14:00)
[2023-09-26 14:22] VITALS: BMI 29.0
[2023-09-26] MEDS ORDERED: NALOXONE HCL 0.4 MG/ML VIAL IVPUSH PRN (14:43)
[2023-09-26] MEDS ORDERED: FENTANYL/BUPIVACAINE/NS/PF - PCEA - 50 ML DISP.SYRIN EP SCH (14:45)
[2023-09-26] MEDS ORDERED: IBUPROFEN 600 MG TABLET (FP) PO ONE (15:21)
[2023-09-26] MEDS: IBUPROFEN 600 MG TABLET (FP) PO PRN ×2 (15:39→21:03)
[2023-09-26] MEDS ORDERED: PENICILLIN G POTASSIUM 2,500,000 UNIT in SODIUM CHLORIDE 100 ML IVPB SCH (16:00)
[2023-09-26] MEDS: FERROUS SO4 325 MG TABLET (FP) PO SCH (18:10)
[2023-09-27 07:45] LABS: BASO % 0.6 % (0-2.0); EOS % 1.2 % (0-4.5); HEMATOCRIT 32.6 % (32.4-45.2); LYMPH % 24.8 % (8-40); MCH 30.2 pg (25.7-33.7); MCHC 33.8 g/dl (32.0-36.0); MEAN CELL VOLUME 89.4 fl (80-96); MEAN PLT VOLUME 7.4 fl (7.5-11.1); MONO % 7.1 % (3.8-10.2); NEUT % 66.3 % (42.8-82.8); PLATELET COUNT 234 10^3/uL (134-434); RBC 3.65 M/mm3 (3.60-5.2); WHITE BLOOD COUNT 11.2 K/mm3 (4.0-10.0)
[2023-09-27] MEDS: FERROUS SO4 325 MG TABLET (FP) PO SCH ×3 (08:16→17:14)
[2023-09-27] MEDS: IBUPROFEN 600 MG TABLET (FP) PO PRN ×2 (08:22→20:21)
[2023-09-27] MEDS: PRENATAL VITAMINS W/ FOLIC ACID TABLET (FP) PO SCH (10:00)
[2023-09-27] MEDS ORDERED: SENNOSIDES/DOCUSATE COMBO (SENNA PLUS) TABLET (UD) PO PRN (22:00)
[2023-09-28] MEDS: IBUPROFEN 600 MG TABLET (FP) PO PRN ×2 (08:59→13:02)
[2023-09-28] MEDS: PRENATAL VITAMINS W/ FOLIC ACID TABLET (FP) PO SCH (08:59)
[2023-09-28] MEDS: FERROUS SO4 325 MG TABLET (FP) PO SCH ×2 (08:59→12:21)
[2023-09-28 11:21] VITALS: BP 136/88; PULSE 67; RESP 18; TEMP 97.9
== END 2023-09-28 16:05 | disposition home or self-care (01) | DRG 560 ==
LOC: JDEL 11:29 → JLDR 11:50 → J3W 16:05
PROVIDERS: ADMIT Obstetrics & Gynecology; ATTEND Obstetrics & Gynecology
PROC: 10E0XZZ Delivery of Products of Conception, External Approach (ICD-10-PCS; principal; 2023-09-26)
DX: O99.824 Streptococcus B carrier state complicating childbirth (principal); Z3A.38 38 weeks gestation of pregnancy; Z37.0 Single live birth
CPT/HCPCS: 36415; 80048; 85025; 85610; 85730; 86780; 86850; 86900; 86901

== ENCOUNTER 2025-06-03 01:51 | Emergency (ER) | payer OTHER ==
[2025-06-03 01:58] VITALS: BP 144/80; PULSE 73; RESP 18; TEMP 98.5; BMI 25.4
== END 2025-06-03 03:50 | disposition home or self-care (01) ==
LOC: JER 01:51
DX: L72.3 Sebaceous cyst (principal); L63.9 Alopecia areata, unspecified
CPT/HCPCS: 99283-25